=== PATIENT | male | born 1960 | race Caucasian/White ===

== ENCOUNTER 2017-08-08 17:42 | Emergency (ER) | payer OTHER ==
[~2017-08-08 17:42] MED LIST: IBUP400T20 PO; NAPR220T95 PO
[2017-08-08 17:53] VITALS: BP 171/80; PULSE 98; RESP 20; TEMP 97.8; O2SAT 99
--- NOTE | 2017-08-08 18:43 | PD ---
HPI Chief Complaint: Alcohol/Drug Intoxication Time Seen by Provider: 18:38 Travel History International Travel<30 days: No Contact w/Intl Traveler<30days: No Traveled to known affect area: No History of Present Illness HPI The patient is 57 years old and arrives by police escort. He was unresponsive on his front yard. He reports drinking alcohol. He had blood on his face and for that reason he was brought here. Here he has no specific complaint. Location generalized and nose. PFSH Past Medical History Medical History: Unable to Obtain ?: Not Past Surgical History Surgical History: Unable to Obtain Social History Alcohol Use: Yes Tobacco Use: No Substance Use: No Allergies-Medications (Allergen,Severity, Reaction): Coded Allergies: No Known Allergies (Unverified Adverse Reaction, Unknown, 08/08/17) Reported Meds & Prescriptions Reported Meds & Active Scripts Active Reported Ibuprofen 400 Mg Tab 400 Mg PO Q4H PRN Aleve (Naproxen Sodium) 220 Mg Tab 220 Mg PO BID Review of Systems Except as stated in HPI: all other systems reviewed are Neg Physical Exam Narrative GENERAL: 57-year-old male found resting comfortably on a stretcher well- nourished well-developed Vital Signs Date Time Temp Pulse Resp B/P (MAP) Pulse Ox O2 Delivery O2 Flow Rate FiO2 08/08/17 17:53 97.8 98 20 171/80 (110) 99 SKIN: Warm and dry. HEAD: Atraumatic. Normocephalic. EYES: Pupils equal and round. No scleral icterus. No injection or drainage. ENT: No nasal bleeding or discharge. Mucous membranes pink and moist. There is dried blood about the nares and about the nose. NECK: Trachea midline. No JVD. CARDIOVASCULAR: Tachycardia to about 90s. Regular rhythm. RESPIRATORY: No accessory muscle use. Clear to auscultation. Breath sounds equal bilaterally. GASTROINTESTINAL: Abdomen soft, non-tender, nondistended. Hepatic and splenic margins not palpable. MUSCULOSKELETAL: Extremities without clubbing, cyanosis, or edema. No obvious deformities. NEUROLOGICAL: Speech, memory mentation normal. CN III-XII. Normal gait. PSYCHIATRIC: Appropriate mood and affect; insight and judgment normal. Data Data Last Documented VS Vital Signs Date Time Temp Pulse Resp B/P (MAP) Pulse Ox O2 Delivery O2 Flow Rate FiO2 08/08/17 17:53 97.8 98 20 171/80 (110) [address] Brain W/O Iv Contrast(Rout) (08/08/17 18:38) MDM Medical Decision Making Medical Screen Exam Complete: Yes Emergency Medical Condition: Yes Medical Record Reviewed: Yes Differential Diagnosis Intracranial hemorrhage, epistaxis, alcohol intoxication Narrative Course Last Impressions Head CT 08/08/17 9428 Signed Impressions: Service Date/Time: August 19:00 - CONCLUSION: No acute disease. Arya Banks MD Patient is ambulatory. Patient clinically sober. He is ready for discharge home. Diagnosis Primary Impression: Alcoholism Additional Impressions: Fall Qualified Codes: W19.XXXA - Unspecified fall, initial encounter Epistaxis Med/Other Pt SpecificInfo: No Change to Meds Disposition: 01 DISCHARGE HOME Condition: Stable Owen Farris MD Aug 08, 2017 18:43
--- NOTE | 2017-08-08 19:11 | RADRPT ---
EXAM DATE/TIME: 08/08/2017 19:00 [facility] COMPARISON: No previous studies available for comparison. INDICATIONS : Altered mental status. Possible fall. RADIATION DOSE: 41.83 CTDIvol (mGy) MEDICAL HISTORY : Hypertension. SURGICAL HISTORY : None. ENCOUNTER: Initial ACUITY: 1 day PAIN SCALE: 0/10 LOCATION: cranial TECHNIQUE: Multiple contiguous axial images were obtained of the head. Using automated exposure control and adj ustment of the mA and/or kV according to patient size, radiation dose was kept as low as reasonably a chievable to obtain optimal diagnostic quality images. DICOM format image data is available electro nically for review and comparison. FINDINGS: CEREBRUM: The ventricles are normal for age. No evidence of midline shift, mass lesion, hemorrhage or acute in farction. No extra-axial fluid collections are seen. POSTERIOR FOSSA: The cerebellum and brainstem are intact. The 4th ventricle is midline. The cerebellopontine angle i s unremarkable. EXTRACRANIAL: The visualized portion of the orbits is intact. SKULL: The calvaria is intact. No evidence of skull fracture. CONCLUSION: No acute disease. Arya Banks MD on August 08, 2017 at 19:10 Board Certified Radiologist. This report was verified electronically.
== END 2017-08-08 23:58 | disposition home or self-care (01) ==
LOC: NEDAMB 17:42
DX: F10.20 Alcohol dependence, uncomplicated (principal); R04.0 Epistaxis
CPT/HCPCS: 70450; 99283